=== PATIENT | female | born 1995 ===

== ENCOUNTER 2021-07-20 07:40 | Day surgery (SDC) | payer OTHER ==
[~2021-07-20] VITALS: Ht 152.4 cm; Wt 115.8 kg
[~2021-07-20 07:40] MED LIST: IBUP800 PO; Percocet 5-3251 EACH PO; Verotin-Gr Cap1 EACH PO
[2021-07-20] MEDS ORDERED: ALBU90OI INH (08:08)
== END 2021-07-20 10:45 | disposition home or self-care (01) ==
LOC: ORSCSDS 07:40
PROVIDERS: Obstetrics & Gynecology
PROC: 0UT74ZZ Resection of Bilateral Fallopian Tubes, Percutaneous Endoscopic Approach (ICD-10-PCS; principal; 2021-07-20 08:45)
DX: Z30.2 Encounter for sterilization (principal); Q50.5 Embryonic cyst of broad ligament; N80.3 Endometriosis of pelvic peritoneum; E66.01 Morbid (severe) obesity due to excess calories; Z68.42 Body mass index [BMI] 45.0-49.9, adult; Z87.891 Personal history of nicotine dependence; J45.909 Unspecified asthma, uncomplicated; Z79.899 Other long term (current) drug therapy
CPT/HCPCS: 88302; A9270; J0171; J0690; J1100; J1885; J2250; J2405; J2704; J2710; J3010; J7120